=== PATIENT | male | born 1965 | race Caucasian/White ===

== ENCOUNTER → 2016-08-24 | Outpatient (CLI) | payer BC | END | disposition home or self-care (01) | LOC: LAB.O 15:08 | PROVIDERS: ATTEND Physician Assistant Surgical | DX: D75.1 Secondary polycythemia (principal) ==

== ENCOUNTER → 2016-12-26 | Outpatient (CLI) | payer BC | LOC: GMAM 10:11 | PROVIDERS: ATTEND Family Medicine | DX: Z12.5 Encounter for screening for malignant neoplasm of prostate (principal) ==

== ENCOUNTER 2017-07-09 10:39 | Emergency (ER) | payer BC ==
[2017-07-09 11:08] VITALS: BP 129/77; TEMP 98.1; O2SAT 96
--- NOTE | 2017-07-09 11:10 | ED.PDOC ---
History of Present Illness - General Chief Complaint: Respiratory Problem Stated Complaint: cough,wheezing,achy Time Seen by Provider: 07/09/17 11:08 Source: patient Exam Limitations: no limitations - History of Present Illness Initial Comments: oJe Ng 51 y/o male stated that he had dry cough for the last 3 days ,nasal congestion,and body aches. No fever. No ill contact,no foreign travel,no flu immunization. Timing/Duration: constant, other - 3 days Severity: moderate Improving Factors: nothing Worsening Factors: nothing Associated Symptoms: other - see hpi Allergies/Adverse Reactions: Allergies NO KNOWN ALLERGY Allergy (Verified 06/07/13 08:51) Home Medications: Ambulatory Orders Sertraline HCl [Zoloft] 50 mg PO DAILY 06/06/13 Flomax PO DAILY 07/09/17 Review of Systems - Review of Systems Constitutional: States: no symptoms reported EENTM: States: see HPI Respiratory: States: see HPI Cardiology: States: no symptoms reported Gastrointestinal/Abdominal: States: no symptoms reported All other Systems: Reviewed and Negative, No Change from Baseline Past Medical History (General) - Patient Medical History Hx Stroke: No Hx Cardiac Disorders: No Hx Congestive Heart Failure: No Hx Diabetes: No Hx MRSA: No Surgical History: appendectomy - Vaccination History Hx Influenza Vaccination: No - Social History Hx Tobacco Use: Yes Hx Physical Abuse: No Hx Emotional Abuse: No Hx Suspected Abuse: No Family Medical History - Family History Father Family History: Unknown Living Status: Unknown Hx Family Diabetes: Yes - dad Physical Exam - Physical Exam General Appearance: Alert, Comfortable Eye Exam: bilateral normal Ears, Nose, Throat: hearing grossly normal, normal ENT inspection, normal pharynx Neck: non-tender, full range of motion, supple Respiratory: chest non-tender, lungs clear, normal breath sounds Cardiovascular/Chest: normal peripheral pulses, regular rate, rhythm, no murmur Peripheral Pulses: radial,right: 2+, radial,left: 2+ Gastrointestinal/Abdominal: normal bowel sounds, non tender, soft, no organomegaly Back Exam: no CVA tenderness, no vertebral tenderness Neurologic: alert, oriented x 3 Skin Exam: normal color, warm/dry Lymphatic: no adenopathy Progress - Progress Progress: 07/09/17 12:04 FLU A POSITIVE Patient been sick since last monday and was told that antiviral medicine for flu just good within 48 hours beginning of symptoms and understood.Advise to take tylenol 500 mg every 4 hours for pain/fever and increase oral fluid intake - EKG/XRAY/CT XRAY: chest - no acute abnormalities Departure - Departure Clinical Impression: Influenza A with respiratory manifestations Time of Disposition: 12:08 Disposition: Discharge to Home or Self Care Condition: Good Departure Forms: ED Discharge - Pt. Copy, Patient Portal Self Enrollment Instructions: DI for Influenza -- Adult Referrals: David Amezquita MD [Primary Care Provider] - 1-2 Weeks Home Medications: Ambulatory Orders Sertraline HCl [Zoloft] 50 mg PO DAILY 06/06/13 Flomax PO DAILY 07/09/17 Additional Instructions: Drink extra fluids.Tylenol 500mg one tablet every 4 hours as needed for fever / pain
--- NOTE | 2017-07-09 11:49 | RAD ---
PROCEDURE: Chest,2 Views CLINICAL HISTORY: cough INDICATION: Same as above COMPARISON: None TECHNIQUE: PA and and lateral chest radiographs were obtained. FINDINGS: There are underlying changes of COPD There are no discrete airspace infiltrates, pneumothoraces or pleural effusions. The pulmonary vascularity is normal The cardiomediastinal silhouette is unremarkable for patient's age and sex. IMPRESSION: There is no acute pleural-parenchymal process seen in the imaged lung hu. Place of interpretation: [facility]. Electronically signed by: Baldo Alvarez MD 07/09/2017 11:48 AM [facility] Workstation: Notice Kiosk-
== END 2017-07-09 12:16 | disposition home or self-care (01) ==
LOC: ER 10:39
DX: J10.1 Influenza due to other identified influenza virus with other respiratory manifestations (principal); Z87.891 Personal history of nicotine dependence

== ENCOUNTER → 2018-03-23 | Outpatient (CLI) | payer BC | LOC: GMAM 10:37 | PROVIDERS: ATTEND Family Medicine | DX: Z12.5 Encounter for screening for malignant neoplasm of prostate (principal) ==

== ENCOUNTER → 2018-04-23 | Day surgery (SDC) | payer BC | LOC: AMB 05:56 | PROVIDERS: ATTEND Family Medicine | DX: Z12.11 Encounter for screening for malignant neoplasm of colon (principal); Z53.9 Procedure and treatment not carried out, unspecified reason ==

== ENCOUNTER → 2018-10-25 | Outpatient (CLI) | payer BC, OTHER | LOC: GMAJS 11:16 | PROVIDERS: ATTEND Physician Assistant | DX: R07.2 Precordial pain (principal) ==

== ENCOUNTER 2020-01-04 16:30 | Inpatient (IN) | payer SELFPAY ==
[2020-01-04] MEDS ORDERED: ONDANSETRON INJ 4 MG/2 ML VIAL IV ONE (16:51)
[2020-01-04] MEDS ORDERED: PIPERACILLIN/TAZOBACTAM 3.375 GM in SODIUM CHLORIDE 0.9% 100ML 100 ML IVPB ONE (16:51)
[2020-01-04] MEDS ORDERED: SODIUM CHLORIDE 0.9% 1000ML 1,000 ML IVS ONE (16:51)
[2020-01-04] MEDS ORDERED: MORPHINE SULFATE INJ 10 MG/ML VIAL IV ONE (16:51)
--- NOTE | 2020-01-04 16:55 | ED.PDOC ---
History of Present Illness - General Chief Complaint: Abdominal Pain Stated Complaint: LLQ abd pain Time Seen by Provider: 01/04/20 16:50 Additional Information: Patient is a 54-year-old male who presents to the ED with chief complaint of left lower quadrant pain. Symptoms have been present for approximately 3 days and have been constant and are gradually worsening. Patient describes the pain as sharp and rates it as a 9/10. At patient's last colonoscopy he was told that he has diverticula but he has never had an episode of diverticulitis. Patient called his PCP, Dr. Amezquita, who prescribed oral antibiotics for him 2 days ago. Despite the antibiotics patient's symptoms have gotten worse and he presents to the ED. Patient denies nausea, vomiting, chest pain, shortness of breath, cough, diarrhea. He complains of subjective fever at home. Patient's past surgical history is significant for appendectomy. Review of Systems - Review of Systems Constitutional: States: fever. Denies: chills EENTM: States: no symptoms reported Respiratory: States: no symptoms reported. Denies: cough, short of breath Cardiology: States: no symptoms reported. Denies: chest pain, palpitations Gastrointestinal/Abdominal: States: abdominal pain, nausea. Denies: diarrhea, vomiting Genitourinary: Denies: dysuria Musculoskeletal: Denies: muscle pain Skin: States: no symptoms reported. Denies: rash All other Systems: Reviewed and Negative Past Medical History (General) - Patient Medical History Hx Stroke: No Hx Cardiac Disorders: No Hx Congestive Heart Failure: No Hx Diabetes: No Hx MRSA: No Surgical History: appendectomy - Vaccination History Hx Tetanus, Diphtheria Vaccination: No Hx Influenza Vaccination: Yes Hx Pneumococcal Vaccination: No Immunizations Up to Date: No - Social History Hx Tobacco Use: No Hx Alcohol Use: Yes - REGULARLY Hx Substance Use: No Hx Substance Use Treatment: No Hx Depression: Yes - LEXAPRO Hx Physical Abuse: No Hx Emotional Abuse: No Hx Suspected Abuse: No Family Medical History - Family History Father Family History: Unknown Living Status: Unknown Hx Family Diabetes: Yes - dad Physical Exam - Physical Exam General Appearance: Alert, Well Developed, Well Nourished, Other - Uncomfortable Neck: supple, normal inspection Cardiovascular/Chest: normal peripheral pulses, no edema, no gallop, no JVD, no murmur, tachycardia Gastrointestinal/Abdominal: normal bowel sounds, soft, guarding - Left lower quadrant, tenderness - Moderate left lower quadrant Back Exam: normal inspection, no CVA tenderness Extremity: normal range of motion, non-tender, normal inspection, no pedal edema Neurologic: children's minister II-XII nml as tested, no motor/sensory deficits, alert, normal mood/affect, oriented x 3 Skin Exam: normal color, warm/dry Progress - Progress Progress: 01/04/20 16:57 Differential diagnosis includes but is not limited to diverticulitis, colitis, inflammatory bowel disease, abdominal cramping. 01/04/20 18:39 Patient reexamined and is feeling much better following morphine and Zosyn. Patient's labs are unremarkable but his CT shows acute diverticulitis with microperforation but no evidence of abscess.. Patient's vital signs remained stable and he will require admission for continued antibiotics and surgical consultation. I have spoken with Dr. Larson, general surgeon, who will consult. I have spoken with Gemma Jensen, hospitalist who will admit patient and who requests Flagyl and Levaquin be written for patient. Patient is comfortable and stable at this time. 01/04/20 18:44 - Results/Orders Results/Orders: 01/04/20 16:50 IV:Start .ONCE 01/04/20 16:52 Hold Metformin x 48Hrs [id number] 01/04/20 17:19 BLOOD CULTURE Stat Laboratory Results - last 24 hr 01/04/20 01/04/20 01/04/20 17:05 17:05 17:05 WBC 5.6 RBC 5.67 Hgb 12.4 L Hct 38.6 L MCV 68.1 L MCH 21.8 L MCHC 32.1 L RDW 20.2 H Plt Count 283 MPV 8.3 Absolute Neuts (auto) 4.70 Absolute Lymphs (auto) 0.40 L Absolute Monos (auto) 0.50 Absolute Eos (auto) 0.00 Absolute Basos (auto) 0.10 Neutrophils % 84.2 H Lymphocytes % 6.5 L Monocytes % 8.3 Eosinophils % 0.1 L Basophils % 0.9 Normal RBC Morphology Plts yessenia adequate Sodium 133 L Potassium 4.5 Chloride 102 Carbon Dioxide 21 Anion Gap 14.5 BUN 17 Creatinine 1.49 H BUN/Creatinine Ratio 11.4 Random Glucose 145 H Serum Osmolality 270.5 L Lactic Acid 1.5 Calcium 8.6 Total Bilirubin 0.6 AST 37 ALT 30 Alkaline Phosphatase 67 Serum Total Protein 7.3 Albumin 3.7 Globulin 3.6 H Albumin/Globulin Ratio 1.0 L Urine Color Urine Appearance Urine pH Ur Specific [place] Urine Protein Urine Glucose (UA) Urine Ketones Urine Blood Urine Nitrite Urine Bilirubin Urine Urobilinogen Ur Leukocyte Esterase Urine RBC Urine WBC Ur Epithelial Cells Urine Bacteria 01/04/20 17:15 WBC RBC Hgb Hct MCV MCH MCHC RDW Plt Count MPV Absolute Neuts (auto) Absolute Lymphs (auto) Absolute Monos (auto) Absolute Eos (auto) Absolute Basos (auto) Neutrophils % Lymphocytes % Monocytes % Eosinophils % Basophils % Normal RBC Morphology Sodium Potassium Chloride Carbon Dioxide Anion Gap BUN Creatinine BUN/Creatinine Ratio Random Glucose Serum Osmolality Lactic Acid Calcium Total Bilirubin AST ALT Alkaline Phosphatase Serum Total Protein Albumin Globulin Albumin/Globulin Ratio Urine Color Yellow Urine Appearance Clear Urine pH 6.5 Ur Specific [place] 1.025 Urine Protein 100 H Urine Glucose (UA) Negative Urine Ketones Negative Urine Blood Negative Urine Nitrite Negative Urine Bilirubin Negative Urine Urobilinogen 0.2 Ur Leukocyte Esterase Negative Urine RBC 0-1 Urine WBC 0 Ur Epithelial Cells 0 Urine Bacteria 0 Departure - Departure Clinical Impression: Diverticulitis Time of Disposition: 18:43 Disposition: Admit Patient Condition: Fair Instructions: DI for Abdominal Pain-Adult Home Medications: Ambulatory Orders Diazepam [Valium] 10 mg PO 01/04/20 Escitalopram [Lexapro] 10 mg PO 01/04/20 Metformin HCl [Glumetza] 500 mg PO 01/04/20 Decision To Admit - Decistion To Admit Decision to Admit Reason: Admit from ER Decision to Admit Date: 01/04/20 Decision to Admit Time: 18:43
--- NOTE | 2020-01-04 18:19 | CT ---
PROCEDURE: CT Abdomen/Pelvis w/Contrast CLINICAL HISTORY: 54 years Male LLQ pain TECHNIQUE: Contiguous axial images obtained through the abdomen and pelvis following intravenous contrast administration. Coronal and sagittal reformatted images provided. This CT exam was performed according to our departmental dose-optimization program, which includes one or more of the following dose reduction techniques: automated exposure control, adjustment of the mA and/or kV according to patient size, and/or use of iterative reconstruction technique. COMPARISON: No prior exams provided for comparison. FINDINGS: There are acute inflammatory changes in the left lower quadrant , centered at an inflamed distal descending colonic diverticulum. These inflammatory changes include a few tiny bubbles of extraluminal gas adjacent to the abnormal diverticulum, consistent with a microperforation. No other free intraperitoneal air. No abscess or bowel obstruction. There is diffuse sigmoid diverticulosis. No other bowel inflammation. Prior appendectomy. Bilateral nephrolithiasis without hydronephrosis or pyelonephritis. Small right renal cyst. Mild thickening of the urinary bladder with a mildly enlarged prostate. Minimal dependent atelectasis. The liver, biliary tree, gallbladder, pancreas, spleen, and adrenal glands are normal. No abdominal aortic aneurysm or dissection. No acute osseous abnormality. IMPRESSION: Acute sigmoid diverticulitis with a focal microperforation. No other free intraperitoneal air. No bowel obstruction. Bilateral nephrolithiasis. Mild thickening of the urinary bladder with a mildly enlarged prostate. Findings could be acute or chronic. Correlate with urinalysis. Electronically signed by: Joanne Crane MD 01/04/2020 6:18 PM CDT
[2020-01-04] MEDS ORDERED: levoFLOXacin 750MG IV 750 MG in PREMIX BAG 1 BAG IVPB ONE (18:45)
[2020-01-04] MEDS ORDERED: metroNIDAZOLE IV PREMIX 500MG 500 MG in PREMIX BAG 1 BAG IVPB SCH (19:00)
--- NOTE | 2020-01-04 19:44 | HP ---
SUPERVISING PHYSICIAN: David Amezquita MD CHIEF COMPLAINT: Abdominal pain. HISTORY OF PRESENT ILLNESS: This is a 54 year-old male patient who came to the Emergency Room due to some left lower quadrant abdominal pain. The symptoms have been going on for about 3 or 4 days. He had actually seen his PCP, Dr. Amezquita about 2 days prior and had been started on antibiotics. He actually has a history of diverticulitis and he said in the last couple of days he has been constipated, he normally is not. His diet has changed some and he had significant pain in the left side of his abdomen that had progressively worsened over the last few days. His vital signs in the Emergency Room were temperature of 98, heart rate 100, blood pressure 105/86, respiratory rate 20, oxygen saturation 99% on room air. Lab was done and WBC was 5.6 with hemoglobin of 12.4, hematocrit of 38.6. He did have a left shift on his differential. Electrolytes were basically within normal limits with the exception of his sodium being slightly low at 133. Lactic acid was 1.5. Urinalysis was unremarkable. Blood cultures were drawn. CT of the abdomen and pelvis shows diffuse sigmoid diverticulitis with a focal microperforation, no other free intraperitoneal air, no bowel obstruction, bilateral nephrolithiasis and mild thickening of the urinary bladder with a mildly enlarged prostate. Findings could be acute or chronic, correlate with urinalysis. Emergency Room doctor spoke with Dr. Larson, general surgeon, and he agrees to follow patient in the hospital and he was given Levaquin and Flagyl in the Emergency Room as well as some fluids and pain medication. He was also given some Zofran and I was called for hospital admission. PAST MEDICAL HISTORY: 1. Gastroesophageal reflux disease. 2. Migraine headaches. 3. Depression. PAST SURGICAL HISTORY: 1. Appendectomy. CURRENT MEDICATIONS: 1. Diazepam. 2. Lexapro. 3. Metformin. ALLERGIES: No known drug allergies. FAMILY HISTORY: Noncontributory. SOCIAL HISTORY: He lives in [place], he is . He has 2 children. He recently lost his job. He denies any tobacco use. He drinks alcohol socially and he does smoke marijuana on occasion. REVIEW OF SYSTEMS: GENERAL: Denies fever, fatigue or weight changes. HEENT: Negative for sinus symptoms, ear pain, vision changes, sore throat. RESPIRATORY: Negative for coughing, wheezing, shortness of breath CARDIAC: Negative for chest pain, palpitations, tachycardia. GI: Positive for abdominal pain, nausea. Negative for diarrhea or vomiting. GENITOURINARY: Negative for hematuria, dysuria, polyuria. MUSCULOSKELETAL: Negative for arthralgias, myalgias. . SKIN: Negative for lesions or rashes. NEUROLOGICAL: Negative for headaches, seizures or weakness. PHYSICAL EXAMINATION: VITAL SIGNS: Temperature 98.1, heart rate 97, blood pressure 125/82, respiratory rate 18, oxygen saturation 97% on room air. GENERAL: This is a 54 year-old male patient lying in his hospital bed. He is in no acute distress. HEENT: Normocephalic and atraumatic. Pupils are equal and reactive. Oropharynx clear. NECK: Supple without mass. CHEST: Essentially clear to auscultation bilaterally. There is equal rise and fall of the chest with inspiration and expiration. CARDIOVASCULAR: Regular rate and rhythm. At times, he is mildly tachycardiac. ABDOMEN: Soft, nondistended, he is tender in the left upper and left lower quadrants. There is no rebound tenderness or guarding. GENITOURINARY: Deferred. BACK: Exam deferred. NEUROLOGIC: He is awake, alert, and oriented x.3. Cranial nerves II through XII are grossly intact as tested. Labs and films are as per the history of present illness. ASSESSMENT: 1. Diverticulitis with microperforation, failed outpatient therapy. 2. History of migraine headaches. 3. Depression. 4. Gastroesophageal reflux disease. 5. Elevated A1c of 6.5, recently being treated with metformin with no known diagnosis of diabetes mellitus. PLAN: The patient has been admitted to the hospital. Dr. Larson, general surgeon, has been consulted. He will be placed on bowel rest and have IV fluids. He will be on Levaquin and Flagyl and we will follow Dr. Larson's recommendations. He is on a PPI for ulcer prophylaxis and Lovenox for DVT prophylaxis. He will have pain medications as well as antiemetics. I will restart his home medications as soon as they are verified and as long as they are not oral, we will convert to oral as indicated. I have ordered AM lab. We will continue to follow closely and treat as needed. #[id number] [facility]
[2020-01-04] MEDS: levoFLOXacin 750MG IV 750 MG in PREMIX BAG 1 BAG IVPB SCH ×2 (20:30→22:43)
[2020-01-04] MEDS ORDERED: ACETAMINOPHEN SUPPOSITORY 650 MG PR PRN (20:40)
[2020-01-04] MEDS ORDERED: SODIUM CHLORIDE 0.9% (FLUSH) 10 ML SYG IV PRN (20:40)
[2020-01-04] MEDS: MORPHINE SULFATE INJ 10 MG/ML VIAL IV PRN (20:46)
[2020-01-04] MEDS: KCL 20MEQ/D5 1/2NS 1,000 ML IVS PRN (20:46)
[2020-01-04] MEDS: PANTOPRAZOLE SODIUM IV 40 MG VIAL IV SCH (20:49)
[2020-01-04] MEDS ORDERED: IV SET AND CAP CHANGE INJ INJ SCH (21:00)
[2020-01-04] MEDS: levoFLOXacin 500MG IV 500 MG in PREMIX BAG 1 BAG IVPB SCH (21:00)
[2020-01-04] MEDS ORDERED: SODIUM CHLORIDE 0.9% (FLUSH) 10 ML SYG IV SCH (21:00)
[2020-01-05] MEDS: metroNIDAZOLE IV PREMIX 500MG 500 MG in PREMIX BAG 1 BAG IVPB SCH ×4 (00:19→23:43)
[2020-01-05] MEDS: MORPHINE SULFATE INJ 10 MG/ML VIAL IV PRN ×3 (02:34→20:20)
[2020-01-05] MEDS: KCL 20MEQ/D5 1/2NS 1,000 ML IVS PRN ×3 (06:18→23:43)
[2020-01-05] MEDS ORDERED: metroNIDAZOLE IV PREMIX 500MG 100 ML IVPB ONE (07:51)
[2020-01-05] MEDS: POLYETHYLENE GLYCOL 3350 17 GM PCKT PO SCH (08:42)
--- NOTE | 2020-01-05 08:55 | CONS ---
DATE OF CONSULTATION: 01/04/20 HISTORY OF PRESENT ILLNESS: The patient is a 54 year-old male who reminds me that I took out his appendix 7 years ago. He has had left-sided abdominal pain with loose stools and feelings of fever since . He was started on oral antibiotics by Dr. Savanna Amezquita as an outpatient, however, his symptoms worsened and he presented to the Emergency Room which revealed diverticulitis with a microperforation of the sigmoid colon. He states he had a colonoscopy approximately 6 months ago which revealed only the diverticulum. He does have a family history of a brother and a father both with diverticular disease. There is no history of colon malignancy, ulcerative colitis or Crohn's disease. The patient states his stools have been loose recently but he has passed no blood. PAST MEDICAL HISTORY: 1. Depression. 2. Possibly early diabetes. PAST SURGICAL HISTORY: CURRENT MEDICATIONS: 1. Lexapro. 2. Metformin. 3. Adderall. ALLERGIES: No known drug allergies. FAMILY HISTORY: Positive for diabetes and diverticular disease. SOCIAL HISTORY: The patient is single but has a girlfriend. He denies drug use. He denies tobacco use, he drinks on a routine basis but not to excess. REVIEW OF SYSTEMS: No history of weight loss, shortness of breath, chest pain, change in bowel habits, blood per rectum, melanotic stool. He denies problems urinating. PHYSICAL EXAMINATION: GENERAL: The patient is awake, alert and cooperative and in no acute distress. He is afebrile, normotensive. HEENT: Sclera nonicteric. Mucous membranes are moist. NECK: Without adenopathy. BACK: Without CVA tenderness. CHEST: He has equal breath sounds bilaterally. HEART: Regular rate and rhythm. ABDOMEN: Tenderness in the left lower quadrant. Bowel sounds are normal. EXTREMITIES: Without cyanosis, clubbing, or edema. RECTAL: Exam deferred. There is no mass or referred tenderness noted. LABORATORY: White count 5,000, 84% neutrophil. Hemoglobin 12.5, platelet count 282,000. Potassium 4.5, creatinine 1.49. Liver functions are within normal limits. Urinalysis is pending. CT scan revealed nephrolithiasis without obstructive sign, a renal cyst, the diverticulitis of the sigmoid colon with apparent gas bubbles outside the lumen consistent with a microperforation, thickening of the bladder wall. ADMITTING DIAGNOSIS: 1. Acute diverticulitis with microperforation. 2. Nephrolithiasis. 3. Depression. PLAN: Continue the Levaquin and Flagyl. Follow the patient with you. I will make him n.p.o. tonight. If he is afebrile and feeling well in the morning, we will start him on clear liquids. I have also ordered a dose of Miralax in the morning. #[id number] MTDD
[2020-01-05] MEDS ORDERED: levoFLOXacin 750MG IV 750 MG in PREMIX BAG 1 BAG IVPB SCH (09:00)
--- NOTE | 2020-01-05 20:13 | PN ---
SUPERVISING PHYSICIAN: ISIS GANDARA MD DATE: 01/05/20 SUBJECTIVE: The patient is up and walking in the hallway. He still complains of abdominal pain that has not improved much since yesterday but otherwise no nausea or vomiting. OBJECTIVE: VITAL SIGNS: Temperature 98, heart rate 108, blood pressure 118/84, respiratory rate 18, oxygen saturation 97% on room air. RESPIRATORY: Essentially clear to auscultation bilaterally. CARDIAC: Regular rate and rhythm. GI: Abdomen soft, nondistended. He is diffusely tender on the left upper and lower quadrants. Bowel sounds are positive by hypoactive. NEUROLOGICAL: He awake, alert, and oriented x3. LABORATORY WBC 4, hemoglobin 11.5, hematocrit 32.1. Electrolytes are basically within normal limits except calcium is slightly low at 8;1. Creatinine is still elevated at 1.46. Baseline creatinine is about 1 but has been as high at 1.2. Preliminary blood cult res show no growth after 24 hours. All other labs and films have been reviewed via the EMR. ASSESSMENT: 1. Diverticulitis with microperforation, failed outpatient therapy. 2. Elevated creatinine with no known kidney disease. 3. History of migraine headaches. 4. Depression. 5. Gastroesophageal reflux disease. 6. Elevated A1c of 6.5, recently being treated with metformin with no known diagnosis of diabetes mellitus. PLAN: We will continue present supportive care. His GI issues will be per Dr. Larson. We will continue with his fluids and advance his diet once his pain has improved. I have started him on IS and encouraged good pulmonary hygiene.. He is up walking the halls so I will hold his Lovenox for now. Lab has been ordered for in the morning. We will continue to monitor closely and follow as needed. #[id number] MTDD
[2020-01-05] MEDS: levoFLOXacin 500MG IV 500 MG in PREMIX BAG 1 BAG IVPB SCH (20:21)
[2020-01-05] MEDS: PANTOPRAZOLE SODIUM IV 40 MG VIAL IV SCH (20:21)
--- NOTE | 2020-01-06 07:04 | RAD ---
EXAMINATION: X-ray abdomen two views. INDICATION: Diverticulitis with microperforation. COMPARISON: CT from January 04, 2020 TECHNIQUE: Upright and supine views of the abdomen were obtained. FINDINGS: Lung bases: Clear Upright film: No pneumoperitoneum. No pathologic air-fluid levels. Bowel: No dilated small bowel. Gas and stool within the colon. Other: No abnormal calcifications. Bones Mild degenerative changes of the hips. IMPRESSION: 1. Nonobstructive bowel gas pattern. 2. No pneumoperitoneum. Electronically signed by: Popeye Mcnair MD 01/06/2020 7:02 AM CDT
[2020-01-06] MEDS: POLYETHYLENE GLYCOL 3350 17 GM PCKT PO SCH (07:51)
[2020-01-06] MEDS: metroNIDAZOLE IV PREMIX 500MG 500 MG in PREMIX BAG 1 BAG IVPB SCH (07:59)
[2020-01-06] MEDS: KCL 20MEQ/D5 1/2NS 1,000 ML IVS PRN (07:59)
[2020-01-06 12:55] VITALS: BP 124/85; TEMP 98.3; O2SAT 100
--- NOTE | 2020-01-14 09:08 | DS ---
SUPERVISING PHYSICIAN: Franco Rollins MD ADMISSION DIAGNOSIS: 1. Diverticulitis with microperforation, failed outpatient therapy. 2. History of migraine headaches. 3. Depression. 4. Gastroesophageal reflux disease. 5. Elevated A1c of 6.5, recently being treated with metformin with no known diagnosis of diabetes mellitus. DISCHARGE DIAGNOSIS: 1. Diverticulitis with microperforation, failed outpatient therapy. 2. Elevated creatinine with no known kidney disease. 3. History of migraine headaches. 4. Depression. 5. Gastroesophageal reflux disease. 6. Elevated A1c of 6.5, recently being treated with metformin with no known diagnosis of diabetes mellitus. MEDICAL CONSULTATION: Dr. Larson. Please see his note for details. REASON FOR HOSPITALIZATION: This is a 54 year-old male patient who came to the Emergency Room due to some left lower quadrant abdominal pain. The symptoms have been going on for about 3 or 4 days. He had actually seen his PCP, Dr. Amezquita about 2 days prior and had been started on antibiotics. He actually has a history of diverticulitis and he said in the last couple of days he has been constipated, he normally is not. His diet has changed some and he had significant pain in the left side of his abdomen that had progressively worsened over the last few days. His vital signs in the Emergency Room were temperature of 98, heart rate 100, blood pressure 105/86, respiratory rate 20, oxygen saturation 99% on room air. Lab was done and WBC was 5.6 with hemoglobin of 12.4, hematocrit of 38.6. He did have a left shift on his differential. Electrolytes were basically within normal limits with the exception of his sodium being slightly low at 133. Lactic acid was 1.5. Urinalysis was unremarkable. Blood cultures were drawn. CT of the abdomen and pelvis shows diffuse sigmoid diverticulitis with a focal microperforation, no other free intraperitoneal air, no bowel obstruction, bilateral nephrolithiasis and mild thickening of the urinary bladder with a mildly enlarged prostate. Findings could be acute or chronic, correlate with urinalysis. Emergency Room doctor spoke with Dr. Larson, general surgeon, and he agrees to follow patient in the hospital and he was given Levaquin and Flagyl in the Emergency Room as well as some fluids and pain medication. He was also given some Zofran and I was called for hospital admission. LABORATORY: White count on discharge was 4,000, hemoglobin 12.2, hematocrit 38.3, platelet count 244,000. Differential was without a left shift. Chemistries on discharge showed normal electrolytes with creatinine 1.27, calcium 8.4, magnesium 2.1. Liver functions all within normal limits. Urinalysis showed 100 of protein, otherwise within normal limits. MICROBIOLOGY: Blood cultures showed no growth after 5 days. RADIOLOGY: Abdominopelvic CT per radiologic interpretation showed acute sigmoid diverticulitis with focal microperforation, no other free intraperitoneal air or bowel obstruction. There was note of bilateral nephrolithiasis with some mild thickening of the urinary bladder with mildly enlarged prostate. Findings could be acute or chronic. Please see that report for details. HOSPITAL COURSE: Mr. Ng was admitted for acute diverticulitis with microperforation with consultation by Dr. Larson. He was treated with Flagyl and Levaquin. He was kept NPO until his pain resolved. He was given fluids and he was able to tolerate low-residual diet prior to discharge. He was no longer symptomatic and vital signs were stable with temperature 98.3 on discharge, blood pressure 124/85, respirations 16, pulse 94, saturation 100% on room. It was felt he was clinically improved well enough to continue with outpatient management. PLAN: Mr. Ng was discharged with instructions to followup with Dr. Amezquita on 01/20/20 at 9:30 am. He was to resume a low residual diet as tolerated. He was to take medications as prescribed including continued antibiotics with Flagyl and Levaquin and to call Dr. Amezquita's or Dr. Larson's office should any symptoms return and return to the Emergency Department as needed. He is to increase his activity as tolerated. Diet was to be a low residual diet. MEDICATIONS PRESCRIBED ON DISCHARGE: 1. Flagyl 500 mg q.8h, #42, no refills. 2. Levaquin 500 mg, #14, no refills. CONDITION ON DISCHARGE: Stable and improved. DISPOSITION: The patient was discharged home. #[id number] [facility]
== END 2020-01-06 13:40 | disposition home or self-care (01) | DRG 392 ==
LOC: ER 16:30 → MS 19:43 → OBSVTOIN 19:43
PROVIDERS: ADMIT Nurse Practitioner Acute Care; ATTEND Nurse Practitioner Family
PROC: BW211ZZ Computerized Tomography (CT Scan) of Abdomen and Pelvis using Low Osmolar Contrast (ICD-10-PCS; principal; 2020-01-04)
DX: K57.20 Diverticulitis of large intestine with perforation and abscess without bleeding (principal); E87.1 Hypo-osmolality and hyponatremia; F32.9 Major depressive disorder, single episode, unspecified; R79.89 Other specified abnormal findings of blood chemistry; N20.0 Calculus of kidney; K21.9 Gastro-esophageal reflux disease without esophagitis; N40.0 Benign prostatic hyperplasia without lower urinary tract symptoms; Z90.49 Acquired absence of other specified parts of digestive tract; Z79.84 Long term (current) use of oral hypoglycemic drugs; Z79.899 Other long term (current) drug therapy

== ENCOUNTER 2020-05-05 18:36 | Emergency (ER) | payer OTHER ==
[2020-05-05] MEDS ORDERED: SODIUM CHLORIDE 0.9% (FLUSH) 10 ML SYG IV PRN (20:42)
[2020-05-05] MEDS ORDERED: ALUM & MAG HYDROX-SIMETHICONE 30 ML, LIDOCAINE VISCOUS 2% 15 ML PO ONE ×2 (20:43)
--- NOTE | 2020-05-05 21:07 | RAD ---
EXAM DESCRIPTION: Chest,1 View CLINICAL HISTORY: 54 years Male, chest pain COMPARISON: 07/09/2017 TECHNIQUE: Single AP chest radiograph. FINDINGS: Diffuse bilateral hazy pulmonary opacities. No pneumothorax or pleural effusion. Normal cardiomediastinal contour. Normal osseous structures. IMPRESSION: 1. Nonspecific hazy bilateral pulmonary opacities. Differential includes multifocal infection such as viral pneumonitis. Electronically signed by: David Love MD 05/05/2020 9:05 PM EXERCISE PHYSIOLOGIST
[2020-05-05] MEDS ORDERED: NITROGLYCERIN 2% 1 GM UD TOP ONE (21:50)
[2020-05-05] MEDS ORDERED: ASPIRIN (CHEWABLE) 81 MG TAB PO ONE (21:50)
--- NOTE | 2020-05-05 22:03 | ED.PDOC ---
History of Present Illness - General Chief Complaint: Abdominal Pain Stated Complaint: abdominal pain and chest pain Time Seen by Provider: 05/05/20 20:42 Source: patient, RN notes reviewed, Vital Signs reviewed Exam Limitations: no limitations - History of Present Illness Initial Comments: Patient is a 54-year-old white male who presents with complaints of abdominal pain, shortness of breath and some pain in his chest that radiates from his abdomen. This started yesterday evening. The abdominal pain was worse when he laid down and radiated into his center of his chest. It caused him to be short of breath. Patient ended up sleeping upright propped on pillows. The pain was sharp and burning in nature. Worse with lying down. Better with upright position and some help after drinking water. The shortness of breath never really got better. The pain was moderate in intensity. Pain is constant. It is waxing and waning in intensity. Timing/Duration: 24 hours Severity: moderate Improving Factors: other - sitting up and resting Worsening Factors: other - supine position or exertion Associated Symptoms: chest pain, nausea/vomiting - nausea, shortness of breath Allergies/Adverse Reactions: Allergies [place] Oil Allergy (Verified 05/05/20 20:12) Home Medications: Ambulatory Orders Diazepam [Valium] 10 mg PO 01/04/20 Escitalopram [Lexapro] 10 mg PO 01/04/20 Metformin HCl [Glumetza] 500 mg PO 01/04/20 levoFLOXacin [Levaquin] 500 mg PO DAILY #14 tab 01/06/20 metroNIDAZOLE [Flagyl] 500 mg PO Q8H #42 tab 01/06/20 Review of Systems - Review of Systems Constitutional: States: no symptoms reported. Denies: chills, fever, malaise, weakness EENTM: States: no symptoms reported. Denies: eye pain, blurred vision, double vision Respiratory: States: see HPI, short of breath. Denies: cough, stridor, wheezing Cardiology: States: see HPI, chest pain. Denies: palpitations, syncope Gastrointestinal/Abdominal: States: see HPI, abdominal pain, nausea. Denies: diarrhea, vomiting Genitourinary: States: no symptoms reported. Denies: dysuria, frequency Musculoskeletal: States: no symptoms reported. Denies: back pain, joint pain, neck pain Skin: States: no symptoms reported. Denies: change in color, lumps, rash Neurological: States: no symptoms reported. Denies: headache, tingling, tremors, weakness Endocrine: States: no symptoms reported. Denies: increased hunger, increased thirst, increased urine Hematologic/Lymphatic: States: no symptoms reported, blood clots, easy bleeding All other Systems: Reviewed and Negative Past Medical History (General) - Patient Medical History Hx Seizures: No Hx Stroke: No Hx Asthma: No Hx of COPD: No Hx Cardiac Disorders: No Hx Congestive Heart Failure: No Hx Pacemaker: No Hx Hypertension: No Hx Diabetes: No Hx MRSA: No - Vaccination History Hx Tetanus, Diphtheria Vaccination: No Hx Influenza Vaccination: Yes Hx Pneumococcal Vaccination: No - Social History Hx Tobacco Use: No Hx Alcohol Use: No Hx Substance Use: No Hx Substance Use Treatment: No Hx Depression: Yes - LEXAPRO Hx Physical Abuse: No Hx Emotional Abuse: No Hx Suspected Abuse: No Family Medical History - Family History Father Family History: Unknown Living Status: Still Living Hx Family Diabetes: Yes - dad Mother Living Status: Still Living Hx Family Cancer: Yes Physical Exam - Physical Exam General Appearance: Alert, Anxious, Well Developed, Well Groomed, Well Hydrated, Well Nourished Eye Exam: bilateral normal Ears, Nose, Throat: hearing grossly normal, normal ENT inspection, normal pharynx Neck: non-tender, full range of motion, supple Respiratory: chest non-tender, lungs clear, normal breath sounds, no respiratory distress, no accessory muscle use, respiratory distress Cardiovascular/Chest: normal peripheral pulses, no edema, no gallop, no JVD, no murmur, tachycardia, irregularly irregular Peripheral Pulses: radial,right: 2+, radial,left: 2+ Gastrointestinal/Abdominal: normal bowel sounds, soft, tenderness - at epigastrum Back Exam: normal inspection, no CVA tenderness, no vertebral tenderness Extremity: normal range of motion, non-tender, normal inspection Neurologic: collar cutter II-XII nml as tested, no motor/sensory deficits, alert, normal mood/affect, oriented x 3 Skin Exam: normal color, warm/dry Lymphatic: no adenopathy Progress - Progress Progress: Differential diagnosis: Acute AR, new onset A. fib, Covid, GERD, pneumonia among others. 05/05/20 22:15 Patient is pain-free at this point in time. We are attempting to stabilize his heart rate. Plan on admission at outside facility as we do not have cardiology here. I discussed this plan of care with the patient he voices understanding and agreement. I will update the chart with further information as it is available. 05/05/20 23:[address] Panda at [facility] in [place].Plan transfer at this time. Alexander Wilson M.D. #[id number] - Results/Orders Results/Orders: EKG performed on 05 May 2020 at 2202 hrs.: Atrial fibrillation with rapid ventricular response at 120 bpm, right axis deviation, cannot rule out inferior infarct, age indeterminate, abnormal EKG. EXAM DESCRIPTION: Chest,1 View CLINICAL HISTORY: 54 years Male, chest pain COMPARISON: 07/09/2017 TECHNIQUE: Single AP chest radiograph. FINDINGS: Diffuse bilateral hazy pulmonary opacities. No pneumothorax or pleural effusion. Normal cardiomediastinal contour. Normal osseous structures. IMPRESSION: 1. Nonspecific hazy bilateral pulmonary opacities. Differential includes multifocal infection such as viral pneumonitis. Electronically signed by: David Love MD 05/05/2020 9:05 PM 05/05/20 20:42 Sodium Chloride 0.9% (Flush) [Saline Flush Syringe] 3 ml IV PRN PRN 05/05/20 20:43 IV Care:Saline Lock per Protoc QSHIFT Telemetry ONCE EKG Assessment ONCE Pulse Oximetry Assessment DAILY 05/05/20 20:45 EKG STAT 05/05/20 22:13 RAPID SARS-CoV-2 RNA Stat 05/06/20 09:00 Pulse Ox Daily Laboratory Results - last 24 hr 05/05/20 05/05/20 05/05/20 20:45 20:45 20:45 WBC 5.7 RBC 5.57 Hgb 13.1 L Hct 40.2 L MCV 72.3 L MCH 23.6 L MCHC 32.6 L RDW 21.1 H Plt Count 219 MPV 8.8 Absolute Neuts (auto) 3.60 Absolute Lymphs (auto) 1.30 Absolute Monos (auto) 0.50 Absolute Eos (auto) 0.10 Absolute Basos (auto) 0.00 Neutrophils % 64.2 Lymphocytes % 23.9 Monocytes % 9.2 H Eosinophils % 1.8 Basophils % 0.9 Normal RBC Morphology Stain quality accept PT 11.6 H INR 1.17 H PTT (SP) 23.8 Sodium 138 Potassium 4.1 Chloride 107 Carbon Dioxide 22 Anion Gap 13.1 BUN 16 Creatinine 1.42 H BUN/Creatinine Ratio 11.3 Random Glucose 101 Serum Osmolality 277.0 Calcium 8.4 Magnesium 2.3 Total Bilirubin 0.7 Direct Bilirubin 0.1 Indirect Bilirubin 0.6 AST 88 H ALT 70 H Alkaline Phosphatase 60 Creatine Kinase 925 H* CK-MB (CK-2) 8.2 H* CK-MB (CK-2) % 0.89 Troponin I 0.08 H* B-Natriuretic Peptide 296.0 H* Serum Total Protein 6.6 Albumin 3.7 Departure - Departure Clinical Impression: NSTEMI (non-ST elevated myocardial infarction), Atrial fibrillation with rapid ventricular response CHF (congestive heart failure) Qualifiers: Heart failure type: unspecified Heart failure chronicity: unspecified Qualified Code(s): I50.9 - Heart failure, unspecified Abdominal pain Qualifiers: Abdominal location: epigastric Qualified Code(s): R10.13 - Epigastric pain Time of Disposition: 23:14 Disposition: Transfer to Hospital Condition: Fair Departure Forms: ED Discharge - Pt. Copy, Patient Portal Self Enrollment Instructions: DI for Abdominal Pain-Adult Diet: resume usual diet Activity: as per physical therapy Referrals: David Amezquita MD [Primary Care Provider] - 1-2 Weeks Home Medications: Ambulatory Orders Diazepam [Valium] 10 mg PO 01/04/20 Escitalopram [Lexapro] 10 mg PO 01/04/20 Metformin HCl [Glumetza] 500 mg PO 01/04/20 levoFLOXacin [Levaquin] 500 mg PO DAILY #14 tab 01/06/20 metroNIDAZOLE [Flagyl] 500 mg PO Q8H #42 tab 01/06/20 Transfer to Outside Facility - Transfer Information Decision to Transfer Date: 05/05/20 Decision to Transfer Time: 21:30 Accepting Facility: [facility]
[2020-05-05] MEDS ORDERED: METOPROLOL TARTRATE INJ 5 MG/5 ML VIAL IV ONE (22:16)
[2020-05-06 00:01] VITALS: BP 116/81; TEMP 96.4; O2SAT 95
== END 2020-05-06 00:01 | disposition short-term general hospital (02) ==
LOC: ER 18:36
DX: I21.4 Non-ST elevation (NSTEMI) myocardial infarction (principal); I48.91 Unspecified atrial fibrillation; R00.0 Tachycardia, unspecified; I50.9 Heart failure, unspecified; R10.13 Epigastric pain; F32.9 Major depressive disorder, single episode, unspecified; Z79.899 Other long term (current) drug therapy; Z20.828 Contact with and (suspected) exposure to other viral communicable diseases

== ENCOUNTER → 2020-06-09 | Outpatient (CLI) | payer OTHER | LOC: GMAM 13:31 | PROVIDERS: ATTEND Family Medicine | DX: I48.20 Chronic atrial fibrillation, unspecified (principal); R53.83 Other fatigue; I10 Essential (primary) hypertension ==